=== PATIENT | male | born 1985 | race Caucasian/White ===

== ENCOUNTER 2016-07-18 13:17 | Emergency (ER) | payer OTHER ==
[2016-07-18 13:29] VITALS: BP 132/73; PULSE 70; TEMP 99; BMI 30.7
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
[2016-07-18] MEDS ORDERED: OXYCODONE/APAP 5/325MG COMBO TABLET PO ONE (15:24)
[2016-07-18] MEDS ORDERED: OXYCODONE/APAP 5/325MG COMBO TABLET ONE (15:25)
== END 2016-07-18 15:31 | disposition home or self-care (01) ==
LOC: JERFT 13:17
PROC: 2W3CX1Z Immobilization of Right Lower Arm using Splint (ICD-10-PCS; principal; 2016-07-18)
DX: S62.144A Nondisplaced fracture of body of hamate [unciform] bone, right wrist, initial encounter for closed fracture (principal); S62.394A Other fracture of fourth metacarpal bone, right hand, initial encounter for closed fracture; Y04.2XXA Assault by strike against or bumped into by another person, initial encounter; Y93.89 Activity, other specified; Y92.89 Other specified places as the place of occurrence of the external cause
CPT/HCPCS: 29125; 73130-TC-RT; 99281-25

== ENCOUNTER 2016-12-22 09:55 | Emergency (ER) | payer OTHER ==
[2016-12-22 10:00] VITALS: BP 134/80; PULSE 60; TEMP 97.6; BMI 28.5
[2016-12-22] MEDS ORDERED: ONDANSETRON 4 MG/2 ML VIAL IVPUSH ONE (10:43)
[2016-12-22] MEDS ORDERED: MAG HYDROX/AL HYDROX/SIMETH 355 ML ORAL.SUSP PO ONE (10:44)
[2016-12-22] MEDS ORDERED: FAMOTIDINE 20 MG/50 ML IVPB 50 ML IVPB ONE ×2 (10:44→11:10)
--- NOTE | 2016-12-22 10:51 | PDOC ---
History of Present Illness - General Chief Complaint: Pain Stated Complaint: ABD PAIN Time Seen by Provider: 12/22/16 10:31 History Source: Patient - History of Present Illness Timing/Duration: reports: constant Abdominal Pain Onset Location: reports: epigastric Pain Radiation: denies: no radiation Past History - Past Medical History Allergies/Adverse Reactions: Allergies Allergy/AdvReac Type Severity Reaction Status Date / Time No Known Allergies Allergy Verified 12/22/16 10:35 Home Medications: Ambulatory Orders Famotidine [Pepcid] 20 mg PO DAILY #14 tablet 12/22/16 Mag Hydrox/Al Hydrox/Simeth [Mylanta Suspension -] 30 ml PO Q6H #1 bottle Cardiac Disorders: Yes - Surgical History Cardiac Surgery: Yes ( A CHILD) - Suicide/Smoking/Psychosocial Hx Smoking History: Current every day smoker Number of Cigarettes Smoked Daily: 10 Information on smoking cessation initiated: Yes 'Breaking Loose' booklet given: 12/22/16 Hx Alcohol Use: Yes (SOCIAL) Drug/Substance Use Hx: No Substance Use Type: None Review of Systems - Review of Systems Constitutional: No: Chills, Fever Respiratory: No: Cough, Shortness of Breath Cardiac (ROS): No: Chest Pain, Palpitations ABD/GI: No: Constipated, Diarrhea, Nausea, Vomiting : No: Dysuria, Flank Pain, Hematuria *Physical Exam - Vital Signs Last Vital Signs Temp Pulse Resp BP Pulse Ox 97.6 F 60 20 134/80 100 12/22/16 09:56 12/22/16 09:56 12/22/16 09:56 12/22/16 09:56 12/22/16 09:56 - Physical Exam General Appearance: Yes: Appropriately Dressed. No: Apparent Distress HEENT: positive: Normal Voice Neck: positive: Supple Respiratory/Chest: positive: Lungs Clear, Normal Breath Sounds. negative: Respiratory Distress Cardiovascular: positive: Regular Rate, S1, S2 Gastrointestinal/Abdominal: positive: Normal Bowel Sounds, Tender (to epigastrium), Soft. 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 Patient complaining of upper abdominal pain for 3 days, worse with po intake only. +n/v and feels that he is constipated. Last BM 2 days ago. No BRPR, melena, f/c. No chest pain or SOB. Has not tried anything for pain. No history of similar symptoms in the past. No obvious inciting agents. Denies excessive alcohol use. See exam M/l gastritis/GERD -GI cocktail -labs -ekg given hx 12/22/16 10:52 12/22/16 11:40 EKG and labs unremarkable. Patient reports feeling better at this time and able to tolerate po. Will dc with GI follow-up. Will also give referral to primary care *DC/Admit/Observation/Transfer Diagnosis at time of Disposition: Epigastric abdominal pain - Discharge Dispostion Disposition: HOME Condition at time of disposition: Improved - Prescriptions Prescriptions: Mag Hydrox/Al Hydrox/Simeth [Mylanta Suspension -] 30 ml PO Q6H #1 bottle Famotidine [Pepcid] 20 mg PO DAILY #14 tablet - Referrals Referrals: Nacho Myers MD [Staff Physician] - [facility] [place] [facility] [place] [Provider Group] - Patient Instructions Printed Discharge Instructions: Gastritis Additional Instructions: Take medications as directed. If symptoms recur. Please follow-up with Dr. Ford of GI for possible endoscopy. Please follow-up for your primary care needs at [facility]
[2016-12-22 10:59] LABS: BASOPHIL 1.1 % (0-2.0); EOSINOPHIL 0.9 % (0-4.5); MCH 33.8 pg (25.7-33.7); MCHC 35.3 g/dl (32.0-35.9); MEAN CELL VOLUME 95.8 fl (80-96); MEAN PLT VOLUME 7.7 fl (7.5-11.1); NEUTROPHILS 61.2 % (42.8-82.8); PLATELET COUNT 281 K/MM3 (134-434); RDW 12.3 % (11.9-15.9); WHITE BLOOD COUNT 9.3 K/mm3 (4.0-10.0)
[2016-12-22] MEDS ORDERED: ONDANSETRON 4 MG/2 ML VIAL ONE (11:09)
[2016-12-22] MEDS ORDERED: MAG HYDROX/AL HYDROX/SIMETH 30 ML UNIT-DOSE CUP ONE (11:09)
[2016-12-22 11:13] LABS: URINE APPEARANCE CLEAR; URINE BILIRUBIN NEGATIVE (NEGATIVE); URINE BLOOD NEGATIVE (NEGATIVE); URINE COLOR YELLOW; URINE GLUCOSE (UA) NEGATIVE (NEGATIVE); URINE KETONE NEGATIVE (NEGATIVE); URINE NITRITE NEGATIVE (NEGATIVE); URINE PROTEIN NEGATIVE (NEGATIVE); URINE UROBILINOGEN 4.0 E.U/dl mg/dL (0.2-1.0)
[2016-12-22 11:24] LABS: ALBUMIN 4.3 g/dl (3.4-5.0); ANION GAP 12 (8-16); BILIRUBIN,TOTAL 0.6 mg/dL (0.2-1.0); CALCIUM 9.3 mg/dL (8.5-10.1); CO2 23 mmol/L (21-32); CREATININE 0.8 mg/dL (0.7-1.3); GLUCOSE,RANDOM 87 mg/dL (74-106); SGOT/AST 12 U/L (15-37); SGPT/ALT 26 U/L (12-78); TOT PROT 7.7 g/dl (6.4-8.2)
[2016-12-22 11:25] LABS: ALK PHOS 69 U/L (45-117)
[2016-12-22 17:16] LABS: URINE LEUK ESTERASE 1+ (NEGATIVE)
[2016-12-22 18:44] LABS: URINE BACTERIA FEW /hpf (NEGATIVE); URINE RBC 0-2 /hpf (0-3)
--- NOTE | 2016-12-23 10:43 | EKG ---
Test Reason : Blood Pressure : / mmHG Vent. Rate : 057 BPM Atrial Rate : 057 BPM P-R Int : 156 ms QRS Dur : 098 ms QT Int : 438 ms P-R-T Axes : 054 -34 015 degrees QTc Int : 426 ms SINUS BRADYCARDIA WITH SINUS ARRHYTHMIA LEFT AXIS DEVIATION VOLTAGE CRITERIA FOR LEFT VENTRICULAR HYPERTROPHY ABNORMAL ECG WHEN COMPARED WITH ECG OF 02-MAR-2015 13:49, NO SIGNIFICANT CHANGE WAS FOUND Confirmed by ZOË MCKNIGHT, CESILIA ([id number]) on 12/23/2016 10:43:29 AM Referred By: Confirmed By:CESILIA CAMP MD
== END 2016-12-22 11:55 | disposition home or self-care (01) ==
LOC: JER 09:55
PROC: 3E033GC Introduction of Other Therapeutic Substance into Peripheral Vein, Percutaneous Approach (ICD-10-PCS; principal; 2016-12-22)
DX: R10.13 Epigastric pain (principal)
CPT/HCPCS: 36415; 80053; 81003; 81015; 83690; 85025; 93005; 93010; 99282-25

== ENCOUNTER 2019-03-13 21:30 | Emergency (ER) | payer OTHER ==
[2019-03-13 21:37] VITALS: BP 118/66; PULSE 59; TEMP 98.2; BMI 31.1
[2019-03-13 22:43] LABS: BASO % 0.7 % (0-2.0); EOS % 3.3 % (0-4.5); HEMATOCRIT 41.2 % (35.4-49); LYMPH % 29.7 % (8-40); MCH 34.7 pg (25.7-33.7); MCHC 34.1 g/dl (32.0-35.9); MEAN CELL VOLUME 101.8 fl (80-96); MEAN PLT VOLUME 8.1 fl (7.5-11.1); MONO % 12.8 % (3.8-10.2); NEUT % 53.5 % (42.8-82.8); PLATELET COUNT 313 K/MM3 (134-434); RBC 4.04 M/mm3 (4.00-5.60); RDW 11.8 % (11.9-15.9)
[2019-03-13 22:49] LABS: ALBUMIN 3.9 g/dl (3.4-5.0); BILIRUBIN,TOTAL 0.5 mg/dl (0.2-1); CALCIUM 9.2 mg/dl (8.5-10); POTASSIUM 3.9 mmol/L (3.5-5.1); TOT PROT 6.9 g/dl (6.4-8.2)
--- NOTE | 2019-03-13 22:51 | PDOC ---
Documentation entered by Lois Castillo SCRIBE, acting as scribe for Christopher Arango MD. Christopher Arango MD: This documentation has been prepared by the Jonathan blanc Brenda, SCRIBE, under my direction and personally reviewed by me in its entirety. I confirm that the documentation accurately reflects all work , treatment, procedures, and medical decision making performed by me. History of Present Illness - General Chief Complaint: Pain, Acute Stated Complaint: CHEST PAIN,DIZZYNESS History Source: Patient Exam Limitations: No Limitations - History of Present Illness Initial Comments: 03/13/19 22:49 The patient is a year old female, with a significant PMH of congenital heart disease (as infant) who presents to the emergency department for evaluation 6 hours of sudden onset of posterior head pressure, reproducible chest wall tenderness, right lower extremity weakness, numbness and tingling. Patient reports that he is currently still feeling a head pressure and slight dizziness. He notes that the chest pain lasted approximately 4 hours, and the leg weakness lasted about 1 hour. Patient reports he was unable to ambulate due to leg weakness. He endorses no precipitating factors. The patient denies shortness of breath ,Denies fever, chills, nausea, vomiting, diarrhea and constipation. Denies dysuria, frequency, urgency and hematuria. Denies any other symptoms. Allergies: NKA Social history: Smokes marijuana and 1 pack of cigarettes daily. This is a 33-year-old male who comes in complaining of acute onset of posterior occipital pain associated with some sharp muscular type chest wall pain and weakness and numbness of his right leg. Patient said episode for the chest and leg lasted about an hour and the head he is still complaining of a headache. Patient has a normal exam at this time including normal strength and normal neuro exam Work-up initiated including CBC, comp, EKG, cardiac enzymes, chest x-ray, head CT Patient was advised that he needs an MRI and an admission to rule out a TIA or any other neurological conditions that could be causing the symptoms. 03/13/19 22:51 Past History - Past Medical History Allergies/Adverse Reactions: Allergies Allergy/AdvReac Type Severity Reaction Status Date / Time No Known Allergies Allergy Verified 03/13/19 21:31 Home Medications: Ambulatory Orders NK [No Known Home Medication] 03/13/19 Cardiac Disorders: Yes (OPEN HEART SURGERY AT 11 MONTHS OLD) COPD: No - Surgical History Cardiac Surgery: Yes ( A CHILD) - Psycho Social/Smoking Cessation Hx Smoking History: Current every day smoker Have you smoked in the past 12 months: No Number of Cigarettes Smoked Daily: 10 If you are a former smoker, when did you quit?: 20 Information on smoking cessation initiated: Yes 'Breaking Loose' booklet given: 12/22/16 Hx Alcohol Use: No Drug/Substance Use Hx: Yes (MARIJUANA DAILY) Substance Use Type: None Review of Systems - Review of Systems Able to Perform ROS?: Yes Comments:: 03/13/19 22:52 General: No fevers or chills, no weakness, no weight loss HEENT: (+) Head pressure. No change in vision. No sore throat,. No ear pain CardioVascular: (+) chest pain. No shortness of breath Respiratory:No cough, or wheezing. Gastrointestinal: no nausea, vomiting, diarrhea or constipation, No rectal bleeding Genitourinary: No dysuria, hematuria, or frequency Musculoskeletal: No joint or muscle pain or swelling Neurologic: (+) Leg weakness. (+) Dizziness. No vertigo or loss of consciousness Psychiatric: nor depression Skin: No rashes or easy bruising Endocrine: no increased thirst or abnormal weight change Allergic: no skin or latex allergy All other systems reviewed and normal *Physical Exam - Vital Signs Last Vital Signs Temp Pulse Resp BP Pulse Ox 98.2 F 59 L 16 118/66 99 03/13/19 21:33 03/13/19 21:33 03/13/19 21:33 03/13/19 21:33 03/13/19 21:33 ED Treatment Course - LABORATORY CBC & Chemistry Diagram: 03/13/19 22:30 03/13/19 22:30 - ADDITIONAL ORDERS Additional order review: 03/13/19 22:30 RBC 4.04 MCV 101.8 H MCHC 34.1 RDW 11.8 L MPV 8.1 Neutrophils % 53.5 Lymphocytes % 29.7 Monocytes % 12.8 H Eosinophils % 3.3 Basophils % 0.7 - RADIOLOGY Radiology Studies Ordered: Category Date Time Status HEAD CT WITHOUT CONTRAST [CT] Stat CT Scan 03/13/19 22:20 Taken CHEST X-RAY PORTABLE* [RAD] Stat Radiology 03/13/19 22:21 Taken Discharge - Discharge Information Problems reviewed: Yes Clinical Impression/Diagnosis: Transient right leg weakness, Chest pain at rest Headache Qualifiers: Headache type: unspecified Headache chronicity pattern: unspecified pattern Intractability: not intractable Qualified Code(s): R51 - Headache Condition: Stable Disposition: AGAINST MEDICAL ADVICE - Admission No - Follow up/Referral - Patient Discharge Instructions Additional Instructions: You are leaving AGAINST MEDICAL ADVICE by leaving AGAINST MEDICAL ADVICE you accept responsibility for any risks including but not limited to sudden cardiac sudden from a stroke permanent disability or neurological damage. If at any time you change your mind come back to the emergency department for admission. It is very important to follow-up with a neurologist as soon as possible Return to the emergency department immediately with ANY new, persistent or worsening symptoms. Continue any medications as previously prescribed by your physician. You should follow up with your primary doctor as soon as possible regarding today's emergency department visit. . Please make sure your doctor reviews the results of your emergency evaluation. Thank you for coming to the Emergency Department today for your care. It was a pleasure to see you today. Please note that your evaluation is INCOMPLETE until you follow-up with your doctor. - Post Discharge Activity
--- NOTE | 2019-03-14 12:58 | PDOC ---
Patient Follow-up (Call Back) - Post ED Follow - Up Condition at time of discharge: Stable Disposition at time of original discharge: AGAINST MEDICAL ADVICE - Disposition Additional Instructions/Notes: This patient was seen yesterday by Dr. Arzola. I was requested by the cardiology department to submit a request for the EKG that was done during his visit. I submitted the EKG request, which was missing from his original chart. I did not see or evaluate the patient.
--- NOTE | 2019-03-14 15:34 | EKG ---
Test Reason : Blood Pressure : / mmHG Vent. Rate : 054 BPM Atrial Rate : 054 BPM P-R Int : 162 ms QRS Dur : 110 ms QT Int : 452 ms P-R-T Axes : 063 -39 006 degrees QTc Int : 428 ms SINUS BRADYCARDIA LEFT AXIS DEVIATION VOLTAGE CRITERIA FOR LEFT VENTRICULAR HYPERTROPHY ABNORMAL ECG WHEN COMPARED WITH ECG OF 22-DEC-2016 11:23, NO SIGNIFICANT CHANGE WAS FOUND Confirmed by CHRISTOPHER MCKNIGHT, SALINA ([id number]) on 03/14/2019 3:34:15 PM Referred By: DR CONRAD Confirmed By:SALINA WHITE MD
== END 2019-03-13 23:23 | disposition left against medical advice (07) ==
LOC: FER 21:30
DX: M62.81 Muscle weakness (generalized) (principal); R07.9 Chest pain, unspecified; R51 Headache; I51.9 Heart disease, unspecified
CPT/HCPCS: 36415; 70450-TC; 71045-TC-FY; 80053; 82550; 82553; 84484; 85025; 93005; 99282-25

== ENCOUNTER 2020-06-28 08:22 | Emergency (ER) | payer OTHER ==
[2020-06-28 08:48] VITALS: BP 123/80; PULSE 60; TEMP 98.2; BMI 32.9
== END 2020-06-28 11:27 | disposition home or self-care (01) ==
LOC: JER 08:22 → JERFT 08:22
DX: R21 Rash and other nonspecific skin eruption (principal)
CPT/HCPCS: 99281-25